=== PATIENT | male | born 1965 | race Two or more races ===

== ENCOUNTER 2017-12-31 20:55 | Emergency (ER) | payer BC ==
[2017-12-31 21:11] VITALS: BP 138/76
--- NOTE | 2017-12-31 21:39 | ED ---
HPI Chest Pain - HPI Summary HPI Summary: 52 yr old male with chest pain right side of chest, present for about a week. The pain feels like a weight on his chest at times and other times like a pulled muscle. He denies SOB, DIzziness, sweating, nausea, fever, chills, pleuritic pain. He denies smoking, cocaine, drug, Etoh use. He denies family history of CAD or premature . No travel or long trips. No leg pain or swelling. He denies past medical history. - History of Current Complaint Chief Complaint: UCChestPain Time Seen by Provider: 12/31/17 21:01 Pain Intensity: 3 - Allergy/Home Medications Allergies/Adverse Reactions: Allergies Allergy/AdvReac Type Severity Reaction Status Date / Time No Known Allergies Allergy Verified 12/31/17 21:05 PMH/Surg Hx/FS Hx/Imm Hx Endocrine/Hematology History: Denies: Hx Diabetes, Hx Thyroid Disease Cardiovascular History: Denies: Hx Hypertension Respiratory History: Denies: Hx Asthma, Hx Chronic Obstructive Pulmonary Disease (COPD) GI History: Denies: Hx Ulcer Musculoskeletal History: Denies: Hx Rheumatoid Arthritis, Hx Osteoporosis, Hx Scoliosis Neurological History: Denies: Hx Headaches, Other Neuro Impairments/Disorders Infectious Disease History: No Infectious Disease History: Reports: Hx Shingles Denies: Hx Hepatitis, Hx Human Immunodeficiency Virus (HIV), Traveled Outside the [place] in Last 30 Days - Family History Known Family History: Positive: None Family History: He denies family history of CAD. - Social History Alcohol Use: None Substance Use Type: Reports: None Smoking Status (MU): Never Smoked Tobacco Review of Systems Positive: Chest Pain. Negative: Palpitations Negative: Shortness Of Breath All Other Systems Reviewed And Are Negative: Yes Physical Exam Triage Information Reviewed: Yes Vital Signs On Initial Exam: Initial Vitals Temp Pulse Resp BP Pulse Ox 98.3 F 66 16 138/76 97 12/31/17 21:05 12/31/17 21:05 12/31/17 21:05 12/31/17 21:05 12/31/17 21:05 Vital Signs Reviewed: Yes Appearance: Positive: Well-Appearing, No Pain Distress Skin: Positive: Warm, Skin Color Reflects Adequate Perfusion Head/Face: Positive: Normal Head/Face Inspection Eyes: Positive: EOMI, VLAD ENT: Positive: Normal ENT inspection Neck: Positive: Nontender Respiratory/Lung Sounds: Positive: Clear to Auscultation, Breath Sounds Present Cardiovascular: Positive: RRR. Negative: Murmur Abdomen Description: Positive: Nontender Musculoskeletal: Positive: Strength/ROM Intact Neurological: Positive: Sensory/Motor Intact, Alert, Oriented to Person Place, Time, CN Intact II-III, Normal Gait, Speech Normal Psychiatric: Positive: Normal Diagnostics - Vital Signs Vital Signs Temp Pulse Resp BP Pulse Ox 12/31/17 21:05 98.3 F 66 16 138/76 97 - Laboratory Lab Statement: Any lab studies that have been ordered have been reviewed, and results considered in the medical decision making process. - EKG 12/31/17 Cardiac Rate: NL EKG Rhythm: Sinus Rhythm ST Segment: Non-Specific - minor precordial elevation could be consistent with j point,no recip change Ectopy: None Chest Pain Course/Dx - Course Course Of Treatment: 52 yr old male who signed out AMA and who states he is not going to the ER for work up of his chest pain this evening. He is aware of the risk of heart attack, and disability and he signed the AMA form. He verbalized he is calling his primary doctor in the morning for further work up. - Diagnoses Provider Diagnoses: Chest pain Discharge - Sign-Out/Discharge Documenting (check all that apply): Patient Departure - Discharge Plan Condition: Good Disposition: AGAINST MEDICAL ADVICE Referrals: German Liz DO [Primary Care Provider] - - Billing Disposition and Condition Condition: GOOD Disposition: Against Medical Advice
== END 2017-12-31 21:40 | disposition left against medical advice (07) ==
LOC: UCCORT 20:55
DX: R07.89 Other chest pain (principal)
CPT/HCPCS: 93005; 99212; G0463

== ENCOUNTER 2018-03-06 07:00 | Emergency (ER) | payer BC ==
[2018-03-06 07:20] VITALS: BP 114/71
--- NOTE | 2018-03-06 07:35 | UC ---
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 Yesterday he started with body aches, headache and coughing. 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 ST started 3 days ago but resolved that day. sudden body aches yesterday and cough started last night. mild wheezing. - History of Current Complaint Chief Complaint: UCRespiratory Stated Complaint: COUGH RUNNY NOSE Time Seen by Provider: 03/06/18 07:10 Pain Intensity: 4 - Allergies/Home Medications Allergies/Adverse Reactions: Allergies Allergy/AdvReac Type Severity Reaction Status Date / Time No Known Allergies Allergy Verified 03/06/18 07:20 PMH/Surg Hx/FS Hx/Imm Hx Previously Healthy: Yes - Surgical History Surgical History: None - Family History Known Family History: Positive: Hypertension Family History: He denies family history of CAD. - Social History Alcohol Use: None Substance Use Type: None Smoking Status (MU): Never Smoked Tobacco - Immunization History Most Recent Tetanus Shot: OVER 5 YEARS Review of Systems Constitutional: Chills, Fatigue Skin: Negative Eyes: Negative ENT: Nasal Discharge Respiratory: Cough Cardiovascular: Negative Gastrointestinal: Negative Genitourinary: Negative Motor: Negative Neurovascular: Negative Musculoskeletal: Arthralgia Neurological: Negative Psychological: Negative Is Patient Immunocompromised?: No All Other Systems Reviewed And Are Negative: Yes Physical Exam Triage Information Reviewed: Yes Appearance: Well-Nourished, Ill-Appearing Vital Signs: Initial Vital Signs Temp 98.2 F 03/06/18 07:14 Pulse 76 03/06/18 07:14 Resp 16 03/06/18 07:14 BP 114/71 03/06/18 07:14 Pulse Ox 97 03/06/18 07:14 Vital Signs Reviewed: Yes Eye Exam: Normal Eyes: Positive: Conjunctiva Clear ENT: Positive: Pharyngeal erythema - +PND, no exudate., Nasal congestion, Nasal drainage, TMs normal. Negative: Sinus tenderness Dental Exam: Normal Neck exam: Normal Neck: Positive: Supple, Nontender, No Lymphadenopathy Respiratory Exam: Normal Respiratory: Positive: Lungs clear, Normal breath sounds, No respiratory distress, No accessory muscle use. Negative: Crackles, Rhonchi, Stridor, Wheezing Cardiovascular Exam: Normal Cardiovascular: Positive: RRR Abdominal Exam: Normal Abdomen Description: Positive: Nontender, Soft Musculoskeletal Exam: Normal Neurological Exam: Normal Psychological Exam: Normal Skin Exam: Normal UC Diagnostic Evaluation - Laboratory O2 Sat by Pulse Oximetry: 97 Respiratory Course/Dx - Course Course Of Treatment: rapid flu - neg. -no evidence for bacterial infection. discussed that he is contagious and should stay home from work on Thursday if still with significant secretions and cough. APAP, NSAIDs, fluid and rest. -he is very agreeable with plan. - Differential Dx/Diagnosis Differential Diagnosis/HQI/PQRI: Bronchitis, Influenza, Laryngitis, Lower Resp Infection Provider Diagnoses: Viral URI Discharge - Sign-Out/Discharge Documenting (check all that apply): Patient Departure All imaging exams completed and their final reports reviewed: No Studies - Discharge Plan Condition: Stable Disposition: HOME Patient Education Materials: Upper Respiratory Infection (ED) Forms: *Work Release Referrals: German Liz DO [Primary Care Provider] - 6 Days Additional Instructions: -The flu test we did here is negative. You are still contagious. Make sure to wash her hands frequently and avoid contact of your secretions and respiratory droplets with others. I am providing you for work note for Thursday if you needed. Tylenol and ibuprofen will help with the pain and discomfort. Plenty of fluids and rest. He should definitely be seen if symptoms worsen or he develops a high fever. - Billing Disposition and Condition Condition: STABLE Disposition: Home
== END 2018-03-06 08:07 | disposition home or self-care (01) ==
LOC: UCCORT 07:00
DX: J06.9 Acute upper respiratory infection, unspecified (principal)
CPT/HCPCS: 99211; G0463

== ENCOUNTER 2018-11-01 07:01 | Emergency (ER) | payer BC ==
[2018-11-01 07:17] VITALS: BP 129/84
--- NOTE | 2018-11-01 07:24 | UC ---
Skin Complaint HPI - HPI Summary HPI Summary: 53 yo had a probable tick bite about two weeks ago Often outside and in high grass Picked something off his right fore arm Now with rash in general area of presumed bite no f/c no trauma - History of Current Complaint Chief Complaint: UCSkin Time Seen by Provider: 11/01/18 07:18 Stated Complaint: SKIN COMPLAINT Hx Obtained From: Patient Onset/Duration: Other - NA Timing: Constant Current Severity: None Pain Intensity: 0 Pain Scale Used: 0-10 Numeric Location: Discrete Aggravating Factor(s): Nothing Alleviating Factor(s): Nothing Associated Signs & Symptoms: Positive: Rash Related History: Insect Bite/Sting - Allergy/Home Medications Allergies/Adverse Reactions: Allergies Allergy/AdvReac Type Severity Reaction Status Date / Time No Known Allergies Allergy Verified 11/01/18 07:12 PMH/Surg Hx/FS Hx/Imm Hx Previously Healthy: Yes - Surgical History Surgical History: None - Family History Known Family History: Positive: Hypertension, Other - prostate CA Family History: He denies family history of CAD. - Social History Alcohol Use: None Substance Use Type: None Smoking Status (MU): Never Smoked Tobacco - Immunization History Most Recent Tetanus Shot: OVER 5 YEARS Review of Systems All Other Systems Reviewed And Are Negative: Yes Constitutional: Positive: Negative Skin: Positive: Negative Eyes: Positive: Negative ENT: Positive: Negative Respiratory: Positive: Negative Cardiovascular: Positive: Negative Gastrointestinal: Positive: Negative Genitourinary: Positive: Negative Motor: Positive: Negative Neurovascular: Positive: Negative Musculoskeletal: Positive: Negative Neurological: Positive: Negative Psychological: Positive: Negative Physical Exam Triage Information Reviewed: Yes Appearance: Well-Appearing, No Pain Distress, Well-Nourished, Ill-Appearing Vital Signs: Initial Vital Signs Temp 96.7 F 11/01/18 07:13 Pulse 55 11/01/18 07:13 Resp 14 11/01/18 07:13 BP 129/84 11/01/18 07:13 Pulse Ox 100 11/01/18 07:13 Vital Signs Reviewed: Yes Eyes: Positive: Conjunctiva Clear ENT: Positive: Hearing grossly normal, Uvula midline. Negative: Nasal congestion, Nasal drainage, Tonsillar swelling, Tonsillar exudate, Muffled voice , Hoarse voice Neck: Positive: Supple Respiratory: Positive: Lungs clear Cardiovascular: Positive: RRR, No Murmur Musculoskeletal: Positive: ROM Intact, No Edema Neurological: Positive: Alert Psychological Exam: Normal Skin Exam: Other - 3 cm anular rash right forearm with bull's eye appearance Course/Dx - Diagnoses Provider Diagnosis: Erythema marginatum Discharge - Sign-Out/Discharge Documenting (check all that apply): Patient Departure All imaging exams completed and their final reports reviewed: No Studies - Discharge Plan Condition: Stable Disposition: HOME Prescriptions: DOXYcycline CAP(*) [DOXYcycline 100MG CAP(*)] 100 mg PO BID #28 cap Patient Education Materials: Lyme Disease (ED) Referrals: German Liz DO [Primary Care Provider] - 2 Weeks Additional Instructions: we will treat you for presumed Lyme disease - Billing Disposition and Condition Condition: STABLE Disposition: Home
== END 2018-11-01 07:31 | disposition home or self-care (01) ==
LOC: UCCORT 07:01
DX: L53.2 Erythema marginatum (principal)
CPT/HCPCS: 99212; G0463

== ENCOUNTER 2019-07-11 20:24 | Emergency (ER) | payer BC ==
[2019-07-11 21:47] VITALS: BP 122/73
[2019-07-11 22:03] LABS: Influenza A Molecular POSITIVE (Negative)
--- NOTE | 2019-07-11 22:11 | UC ---
FLU HPI - HPI Summary HPI Summary: 53-year-old male presents with onset of dry nonproductive cough yesterday. States throughout the day today he started developing mild nasal congestion, runny nose, sore throat, chills, general malaise, and body aches. Denies ear pain, dysphagia, chest pain, shortness of breath, abdominal pain, nausea, vomiting, or diarrhea. - History of Current Complaint Chief Complaint: UCGeneralIllness Stated Complaint: FLU LIKE SYMPTOMS Time Seen by Provider: 07/11/19 22:07 Hx Obtained From: Patient Pain Intensity: 7 - Allergy/Home Medications Allergies/Adverse Reactions: Allergies Allergy/AdvReac Type Severity Reaction Status Date / Time No Known Allergies Allergy Verified 07/11/19 21:47 PMH/Surg Hx/FS Hx/Imm Hx Previously Healthy: Yes - Denies significant PMH - Surgical History Surgical History: None - Family History Known Family History: Positive: Hypertension, Other - prostate CA - Social History Occupation: Employed Full-time Lives: With Family Alcohol Use: None Substance Use Type: None Smoking Status (MU): Never Smoked Tobacco - Immunization History Most Recent Tetanus Shot: OVER 5 YEARS Review of Systems All Other Systems Reviewed And Are Negative: Yes Constitutional: Positive: Fever, Chills, Fatigue Eyes: Negative: Drainage, Eye Redness ENT: Positive: Sore Throat, Nasal Discharge, Sinus Congestion Respiratory: Positive: Cough. Negative: Shortness Of Breath Cardiovascular: Negative: Palpitations, Chest Pain Gastrointestinal: Negative: Abdominal Pain, Vomiting, Diarrhea, Nausea Genitourinary: Positive: Negative Musculoskeletal: Positive: Myalgia Neurological: Positive: Headache Is Patient Immunocompromised?: No Physical Exam - Summary Physical Exam Summary: GENERAL APPEARANCE: Well developed, well nourished, alert and cooperative, and appears to be in no acute distress. EYES: Conjunctiva clear. No drainage. EARS: External auditory canals and tympanic membranes clear, hearing grossly intact. NOSE: Mild nasal congestion. No nasal discharge. THROAT: Pharyngeal erythema without tonsilar inflammation, swelling, exudate, or lesions. Uvula midline. NECK: Neck supple, non-tender without lymphadenopathy. CARDIAC: Normal S1 and S2. No S3, S4 or murmurs. Rhythm is regular. There is no peripheral edema, cyanosis or pallor. Extremities are warm and well perfused. Capillary refill is less than 2 seconds. Peripheral pulses intact. LUNGS: Clear to auscultation without rales, rhonchi, wheezing or diminished breath sounds. Dry nonproductive cough ABDOMEN: Positive bowel sounds. Soft, nondistended, nontender. No guarding or rebound. No masses or hepatosplenomegally. MUSKULOSKELETAL: ROM intact to all extremities. No joint erythema or tenderness. Normal muscular development. Normal gait. SKIN: Skin normal color, texture and turgor with no lesions or eruptions. Triage Information Reviewed: Yes Vital Signs: Initial Vital Signs Temp 101.2 F 07/11/19 21:41 Pulse 104 07/11/19 21:41 Resp 16 07/11/19 21:41 BP 122/73 07/11/19 21:41 Pulse Ox 95 07/11/19 21:41 Vital Signs Reviewed: Yes Flu Course/Dx - Course Course Of Treatment: 53-year-old male presents with onset of dry nonproductive cough yesterday. States throughout the day today he started developing mild nasal congestion, runny nose, sore throat, chills, general malaise, and body aches. Denies ear pain, dysphagia, chest pain, shortness of breath, abdominal pain, nausea, vomiting, or diarrhea. Patient had an elevated temperature of 101.2 F with a corresponding mild tachycardia otherwise vital signs are stable. Patient had mild nasal congestion, normal TMs, pharyngeal erythema without tonsillar swelling or exudate, no cervical lymphadenopathy, clear bilateral breath sounds , and dry nonproductive cough, and otherwise unremarkable exam. Rapid influenza test was positive for influenza A. Discussed the risks and benefits of starting Tamiflu which patient is electing to do at this time. First dose was given in the clinic. I have additionally recommended symptomatic treatment. He is to follow-up with his primary care provider in 7 days if symptoms are not improving. Anticipatory guidance warning symptoms were reviewed with the patient. Verbalizes understanding and agrees with plan of care. - Differential Dx/Diagnosis Differential Diagnosis/HQI/PQRI: Bronchitis, Influenza, Pneumonia, Upper Respiratory Infection Provider Diagnosis: Influenza A Discharge ED - Sign-Out/Discharge Documenting (check all that apply): Patient Departure All imaging exams completed and their final reports reviewed: No Studies - Discharge Plan Condition: Stable Disposition: HOME Prescriptions: Oseltamivir CAP* [Tamiflu CAP*] 75 mg PO BID #9 cap Patient Education Materials: Influenza (ED) Referrals: German Liz DO [Primary Care Provider] - 7 Days Additional Instructions: Your flu test in the clinic today was positive for influenza A. Start Tamiflu 1 capsule twice a day for 5 days. Get plenty of rest. Drink plenty of fluids to avoid dehydration especially if you are running any fever. Take over the counter acetaminophen (Tylenol) or ibuprofen (Advil, Motrin) according to directions as needed for pain or fever. Use salt water gargles several times a day if you have a sore throat. You may also use Chloraseptic spray or Cepacol lonzenges according to directions which contain a numbing medication and can provide some temporary relief from your sore throat. Follow up with your primary care provider in 7 days if symptoms persist. Seek immediate medical attention in the emergency room if you have fever greater than 100.5 F despite taking acetaminophen or ibuprofen, have chest pain , difficulty breathing, are unable to swallow, or have any worsening of symptoms. - Billing Disposition and Condition Condition: STABLE Disposition: Home
[2019-07-11] MEDS ORDERED: Oseltamivir CAP* 75 MG CAP PO ONE (22:16)
== END 2019-07-11 22:24 | disposition home or self-care (01) ==
LOC: UCCORT 20:24
DX: J10.1 Influenza due to other identified influenza virus with other respiratory manifestations (principal)
CPT/HCPCS: 99212; A9270-GY; G0463